=== PATIENT | female | born 1995 | race Caucasian/White ===

== ENCOUNTER 2017-05-31 06:53 | Inpatient (IN) | payer BC, MEDICAID ==
[~2017-05-31] VITALS: Ht 172.7 cm; Wt 87.1 kg
--- NOTE | ~2017-05-31 | OR ---
[facility] 21 [facility] [address] ROOM: [place] [address] LOCATION: GOBS ADMIT DATE: 05/31/2017 OR/Procedure Report DISCHARGE DATE: FAMILY PHYSICIAN: Amilcar Sanchez MD ATTENDING PHYSICIAN: MARIAELENA LICEA SURGEON: Mariaelena Licea MD RADIO HOST: Parviz Hart MD. Dr. Hart's assistance was required for adequate visualization of the tissues as well as safe delivery of the fetus. DATE OF PROCEDURE: 05/31/2017 PROCEDURE PERFORMED: Primary low-transverse section. ESTIMATED BLOOD LOSS: 600 mL. PREOPERATIVE DIAGNOSES: 1. Intrauterine at 38 weeks 3 days. 2. Gestational hypertension. 3. Breech presentation. 4. Nonreassuring heart tones. POSTOPERATIVE DIAGNOSES: 1. Intrauterine at 38 weeks 3 days. 2. Gestational hypertension. 3. Breech presentation. 4. Nonreassuring heart tones. ANTIBIOTICS: Ancef 2 g. ANESTHESIA: Spinal. FINDINGS: Viable male infant with score of 8 and 9 and weight 8 pounds 0 ounces. Intact placenta with 3-vessel cord. Normal uterus, tubes, and ovaries bilaterally. SPECIMENS: Cord blood, placenta, and arterial cord pH. COMPLICATIONS: None. DISPOSITION: The patient and returned to her room. INDICATION FOR PROCEDURE: The patient is a 21-year-old G1, P0, who has been followed in the office for an uncomplicated course until the last 2 weeks when the patient began having elevated blood pressures. She had her second elevated blood pressure this week, meeting criteria for gestational PATIENT'S NAME: LEANDRO GUERRERO [facility] AGE: 21 Y [address] ROOM: [place] [address] LOCATION: [facility] ADMIT DATE: 05/31/2017 OR/Procedure Report DISCHARGE DATE: FAMILY PHYSICIAN: Amilcar Sanchez MD ATTENDING PHYSICIAN: MARIAELENA LICEA hypertension. She had a normal CBC, CMP, and urine protein to creatinine ratio performed yesterday. She also had a reactive NST and normal USAMA. Of note, on the patient's ultrasound yesterday, she did have a breech presentation and was counseled regarding her options. She desired to attempt external cephalic version. The patient was seen this morning. The risks, benefits, and alternatives of the procedure were discussed with her. head was confirmed to be in the right upper quadrant. However, when patient was laid back to begin the procedure, she had a prolonged deceleration approximately 7 minutes with heart tones down to the 80s. They did improve with maternal re-positioning. A discussion was held with the patient that it was not felt safe to proceed with the procedure due to concern for nonreassuring status. She was then counseled about the risks, benefits, and alternatives again of section. She is aware of the risks and benefits to include, but not limited to risk of bleeding, risk associated with anesthesia, risk of thromboembolism, risk of injury to bowel and bladder, and risk of infection. She was aware of the risks and desired to proceed. DESCRIPTION OF PROCEDURE: The patient was taken back to the operating room where a time-out was performed to confirm correct patient and correct procedure. She then had spinal anesthesia established without difficulty. She was placed in dorsal supine position with a leftward tilt of the hips. Lemus catheter was placed, and SCDs were applied. She was prepped and draped in the usual sterile fashion. Anesthesia was tested and found to be adequate. An incision was made in the skin and carried down to the underlying fascia. Fascia was nicked on both sides of the midline. Fascial incision was extended bilaterally using De Dios scissors. The fascia was then tented up superiorly and then inferiorly and dissected from the underlying rectus muscles sharply and bluntly. Blunt entry was made into the peritoneum and spread. Bladder blade and Rich retractor were placed. A clean knife was used to make a low- transverse hysterotomy incision. Fluid was noted to be clear. The surgeon's hand was placed into the hysterotomy incision, and bladder blade was removed. The left foot was delivered out of the incision followed by the remainder of the leg. right leg was then swept down and through the incision. Gentle traction was applied, and the body was delivered. The arms were swept across the chest. With the assistance of fundal pressure, head was flexed and then delivered. Loose nuchal x1 was present, and the fetus was delivered through. The cord was clamped and cut. The was handed off to the awaiting NICU team. Cord pH and cord blood were obtained. The was noted to have a vigorous cry at that time. IV Pitocin was started per protocol. Uterus was massaged. Placenta was expressed intact and was noted to have a 3-vessel cord. Uterus was then exteriorized and cleared of all clots and debris. Bladder blade was replaced. Uterus was grasped with a wet lap. The uterine incision was closed in a double-layered fashion using 0 Vicryl. Incision appeared hemostatic at that time. Normal tubes and ovaries were appreciated bilaterally. Bilateral PATIENT'S NAME: LEANDRO GUERRERO [facility] AGE: 21 Y [address] ROOM: [place] [address] LOCATION: GOBS ADMIT DATE: 05/31/2017 OR/Procedure Report DISCHARGE DATE: FAMILY PHYSICIAN: Amilcar Sanchez MD ATTENDING PHYSICIAN: MARIAELENA LICEA pericolic gutters were cleared of clots. Uterus was replaced back into the abdomen, and the incision was again inspected and appeared to be hemostatic. The fascia was then closed in a running nonlocked fashion using 0 Vicryl. Subcutaneous tissue was irrigated, and any areas of bleeding were cauterized with Bovie cautery. The skin was then closed using 4-0 Vicryl on a Rik needle. Mastisol and Steri-Strips were applied. All needle, sponge, and instrument counts were noted to be correct x2. The patient remained in the room for a TAP block. MARIAELENA LICEA MD GT/modl /[id number] d: 05/31/17 1351 t: 06/02/17 0850, OPERATIVE SUMMARY
[2017-05-31] MEDS ORDERED: PRENATAL 1+1)(P1 TAB PO (07:29)
[2017-05-31] MEDS ORDERED: TYLENOL EXTRA500 MG PO (07:31)
[2017-05-31 07:54] LABS: BASOPHIL % 0.1 %; EOSINOPHIL % 0.2 %; HEMATOCRIT 36.7 % (33.0-46.0); IMMATURE GRANULOCYTE # 0.1 K/uL (0.0-0.3); IMMATURE GRANULOCYTE % 0.7 %; LYMPHOCYTE # 2.1 K/uL (0.8-4.0); LYMPHOCYTE % 21.3 %; MCH 31.9 pg (27.0-34.0); MCHC 35.4 gm/dL (32.0-36.5); MONOCYTE # 0.7 K/uL (0.0-1.0); MONOCYTE % 6.9 %; MPV 11.1 fl (9.4-12.4); NEUTROPHIL % 70.8 %; NRBC % 0 /100WBC (0-0.00); PLATELET COUNT 179 K/uL (150-450); RBC 4.08 M/uL (3.50-5.00); RDW-CV 12.7 % (11.9-14.6); WBC 9.9 K/uL (4.0-11.0)
[2017-05-31 10:14] LABS: BICARBONATE 25.7 mmol/L (18.0-23.0); PCO2 55 mmHg (35-45); PO2 7 mmHg (80-90)
--- NOTE | 2017-05-31 17:46 | NUR ---
Last VS: T:97.9 P:113 R: 14 BP: 115/68 Pain ratin. Last pain med: Percocet Medicated at: 1500 Effective: Yes R Lung sounds: CLEAR, L Lung sounds: CLEAR Fundus: FIRM, MIDLINE Lochia: RUBRA, SMALL Breasts: SOFT Nipples: INTACT Incision: LOW, TRANSERSE Incision appearance: COVERED Incision closure: COVERED Bowel sounds: HYPOACTIVE Passing flatus: NO Voiding well: RIVERA REMOVED AT 1700, PATIENT HAS NOT VOIDED ON OWN YET Significant event: PRESENTED FOR VERSION, BABY DID NOT TOLERATE SUPINE POSITIONING, MD CALLED SECTION. VSS, AFEBRILE, PAIN IN CONTROL. NEXT PERCOCET DUE AT 1900. NEXT TORADOL DUE AT 2300. USES ICE PACK. USES OWN LANOLIN.
--- NOTE | 2017-06-01 04:07 | NUR ---
vss, fundus firm, 1 finger below, scant-small flow. incision covered with paper tape. clean/dry/intact. ambulated in halls once last night. 2 percocet given at 0400. next dose due at 0800. wants flu shot.
[2017-06-01 06:30] LABS: BASOPHIL % 0.2 %; EOSINOPHIL % 0.4 %; HEMATOCRIT 32.8 % (33.0-46.0); HEMOGLOBIN 11.1 g/dL (11.0-15.0); IMMATURE GRANULOCYTE % 0.4 %; LYMPHOCYTE # 2.5 K/uL (0.8-4.0); LYMPHOCYTE % 26.9 %; MCH 31.5 pg (27.0-34.0); MCHC 33.8 gm/dL (32.0-36.5); MCV 93.2 fl (83.0-98.0); MONOCYTE # 0.7 K/uL (0.0-1.0); MONOCYTE % 7.1 %; MPV 10.8 fl (9.4-12.4); NEUTROPHIL # (ANC) 6.1 K/uL (1.8-7.8); NRBC % 0 /100WBC (0-0.00); PLATELET COUNT 147 K/uL (150-450); RBC 3.52 M/uL (3.50-5.00); RDW-CV 13.1 % (11.9-14.6); WBC 9.4 K/uL (4.0-11.0)
--- NOTE | 2017-06-02 04:53 | NUR ---
vss, pt up ad saravanan. steri strips clean/dry/intact. pt up to bathroom ad saravanan. 1 percocet and motrin given at 0355. possibly home today. need flu shot before discharged.
[2017-06-02] MEDS ORDERED: SURFAK240 MG PO (10:33)
[2017-06-02] MEDS ORDERED: APNO TOP (10:33)
[2017-06-02] MEDS ORDERED: MOTRIN800 MG PO (10:34)
[2017-06-02] MEDS ORDERED: PERCOCET 5-3251 EACH PO (10:35)
--- NOTE | 2017-06-02 16:23 | NUR ---
Reviewed patient's chart. No apparent needs. CM will continue to follow.
== END 2017-06-02 18:35 | disposition disaster alternative care site (69) | DRG 766 ==
LOC: GOBS 06:53 → GOBM 06:53 → GOBS 06:54 → GOBM 06:54 → GOBS 06-02 18:35
PROVIDERS: ADMIT Obstetrics & Gynecology
PROC: 10D00Z1 Extraction of Products of Conception, Low, Open Approach (ICD-10-PCS; principal; 2017-05-31)
PROC: 3E0234Z Introduction of Serum, Toxoid and Vaccine into Muscle, Percutaneous Approach (ICD-10-PCS; 2017-05-31)
DX: O13.3 Gestational [pregnancy-induced] hypertension without significant proteinuria, third trimester (principal); O32.1XX0 Maternal care for breech presentation, not applicable or unspecified; Z3A.38 38 weeks gestation of pregnancy; Z37.0 Single live birth; Z23 Encounter for immunization; O76 Abnormality in fetal heart rate and rhythm complicating labor and delivery
CPT/HCPCS: G0008; J0690; J1885; J2001; J2590; J3105; J7120